=== PATIENT | male | born 1945 | race Caucasian/White ===

== ENCOUNTER 2017-12-11 07:16 | Day surgery (SDC) | payer MEDICARE, BC ==
--- NOTE | 2017-12-08 20:38 | HP ---
CC: Jorge Alberto Lopes MD; Woody Antunez MD * ADMISSION HISTORY AND PHYSICAL: DATE OF ADMISSION/SURGERY: 12/11/17 ATTENDING SURGEON: Asif Sierra MD * (WASHINGTON Cooper, dictating). CHIEF COMPLAINT: Right inguinal hernia. HISTORY OF PRESENT ILLNESS: This is a 71-year-old male who over the past 2 to 3 weeks had noted swelling in the right scrotum. He was initially evaluated by Dr. Antunez. An ultrasound was obtained on 11/27/17, showing a small cystic lesion of the right testicle, measuring 0.7 x 0.4 x 0.5 cm. In addition, there was a lesion measuring 5.6 x 3.2 x 4.9 cm that was isoechoic with fat and appeared to be originating from the inguinal area, felt to be consistent with an inguinal hernia or a lipoma of the cord. The left side testis was normal. The patient denies any prior trauma or straining injury. The swelling has been completely asymptomatic. He has not had any change in GI or function. He was seen in the office by Dr. Sierra on 12/02/17, at which time exam confirmed the presence of a moderate sized right inguinal hernia felt to be indirect in origin. No hernia was appreciated on the left. Dr. Sierra discussed with him the indications for surgery, the risks, benefits, and alternatives and the patient would like to proceed as scheduled with open repair of right inguinal hernia with mesh. PAST MEDICAL HISTORY: Osteoarthritis, depression, insomnia, hyperlipidemia. PAST SURGICAL HISTORY: Previous surgeries include left hip arthroplasty, right hip replacement, right knee replacement, and surgery for spinal stenosis of the cervical and lumbar spine with internal fixation. No reported surgical or anesthesia complications. CURRENT MEDICATIONS: 1. Cymbalta 90 mg once daily. 2. Pravastatin 40 mg once daily. 3. Trazodone 150 mg q.h.s. ALLERGIES: MORPHINE (itching). FAMILY HISTORY: Noncontributory in terms of anesthesia problems, bleeding or clotting disorders. SOCIAL HISTORY: The patient is . He is retired as an client support administrator for physical education. He denies use of tobacco, alcohol, or recreational drugs. REVIEW OF SYSTEMS: General: No recent constitutional symptoms or acute illnesses. His weight has been stable. Cardiovascular: No chest pain, palpitations, history of heart murmur, or hypertension. Respiratory: No chronic cough or shortness of breath. GI: No problems reported. Colonoscopy done approximately 1 year ago with removal of a single benign polyp. Recommended followup in 6 years. : He is followed by Dr. Antunez for some mild BPH. He states that his PSA is normal and that he has nocturia up to 1 time per night. Endocrine: No diabetes or thyroid dysfunction. Musculoskeletal: The patient notes the development of a left ulnar mass in the past couple of weeks which was not precipitated by trauma or injury and has been asymptomatic and otherwise stable in size. PHYSICAL EXAMINATION GENERAL: Well-nourished, mildly obese male, in no acute distress. VITAL SIGNS: Height 69 inches, weight 200 pounds. Blood pressure 122/80, pulse 76, respirations 16. SKIN: Warm and dry. No suspicious rashes or lesions noted. See also below for extremities. HEENT: Pupils equal, round, and reactive. EOMs intact. No conjunctival pallor. Oropharynx; teeth in good repair. No intraoral lesions. NECK: No lymphadenopathy, thyromegaly, or masses. LUNGS: Clear to auscultation. No wheezes. HEART: Regular rate and rhythm. No murmur appreciated. ABDOMEN: Soft, nontender to palpation. No palpable masses or organomegaly with the exception of right groin. The patient was reexamined today and a small lesion was noted on the right testis as confirmation of the ultrasound finding. It was difficult to reproduce the hernia on today's exam. No hernia was appreciated on the left; the testis on that side is slightly smaller versus the right. GENITALIA: Not otherwise examined. RECTAL: Not done. BACK: No spinous process or CVA tenderness. EXTREMITIES: No edema. There is a soft tissue mass along the ulna approximately 2 to 2.5 cm distal to the olecranon measuring 2 x 2.5 cm and without erythema or tenderness (the patient was reassured and will follow up on this with his PCP and/or subassemblies wirer, but it did not appear that any additional intervention was required). NEUROLOGICAL: Grossly intact. IMPRESSION: Right inguinal hernia. PLAN: Open repair of right inguinal hernia with mesh. WASHINGTON COOPER [id number]/[facility] #: [id number] GARRY
[~2017-12-11 07:16] MED LIST: Buffered Lidocaine 0.9% SYRIN* 5 ML/SYR SYRINGE INTRADERM ONE
[2017-12-11] MEDS ORDERED: ceFAZolin 2 GM PREMIX (*) 2 GM/50 ML BAG IVPB ONE (07:31)
[2017-12-11] MEDS ORDERED: Buffered Lidocaine 0.9% SYRIN* 5 ML/SYR SYRINGE ONE (07:31)
[2017-12-11] MEDS ORDERED: fentaNYL* 50 MCG/ML 2 ML VIAL (100 MCG VIAL) ONE (08:12)
[2017-12-11] MEDS ORDERED: Midazolam* 1 MG/ML 2 ML VIAL (2 MG) ONE (08:12)
[2017-12-11] MEDS ORDERED: Lidocaine 1% MPF wEPI 200,000* 30 ML SDV ONE (08:35)
[2017-12-11] MEDS ORDERED: Bupivacaine 0.5% SDV PF* 10-30ML VIAL ONE (08:36)
[2017-12-11] MEDS ORDERED: Propofol* 10 MG/ML 20 ML BTL IV PUSH ONE (08:51)
[2017-12-11] MEDS ORDERED: Naloxone* 0.4 MG/ML 1 ML VIAL IV PRN (09:05)
[2017-12-11] MEDS ORDERED: Acetaminophen TAB* 325 MG PO PRN (09:26)
--- NOTE | 2017-12-11 09:26 | OP ---
Operative Report - Blank - Operative Report Date of Operation: 12/11/17 Note: Preop Dx: Right Inguinal Hernia Postop Dx: same, indirect Procedure: open repair RIH w/ mesh Anesthesia: local MAC Surgeon: Rigo Asst: WASHINGTON Sim Fluids: 400 ml RL EBL: 20 ml Drains: none Specimen: none Findings: dictated
[2017-12-11] MEDS ORDERED: HYDROcodone/ACETAMIN 5-325 MG* 1 TAB PO PRN (09:27)
[2017-12-11] MEDS ORDERED: Ibuprofen TAB* 600 MG PO ONE (09:30)
[2017-12-11] MEDS ORDERED: Ibuprofen TAB* 600 MG ONE (09:53)
[2017-12-11 10:03] VITALS: BP 112/84
--- NOTE | 2017-12-11 16:30 | OP ---
CC: Dr. Antunez; Dr. Lopes * DATE OF OPERATION: 12/11/17 - [facility] DATE OF : 43 SURGEON: Asif Sierra MD VESSEL CREW MEMBER: WASHINGTON Cooper ANESTHESIOLOGIST: Don Lancaster MD ANESTHESIA: LMAC anesthesia. PRE-OP DIAGNOSIS: Right inguinal hernia. POST-OP DIAGNOSIS: Right inguinal hernia. OPERATIVE PROCEDURE: Open repair, right inguinal hernia with mesh. DESCRIPTION OF PROCEDURE: The patient was supine on the operating room table. After adequate intravenous sedation, compression stockings, Francis Hugger warmer, and intravenous antibiotics, the right groin was prepped with antiseptic and draped in a sterile fashion. Local infiltrative anesthesia was administered and approximately 3-inch incision was created and carried down through the external oblique, which was opened in the direction of its fibers. Cord structures were encircled with a Smith drain and tented upward. It was a fairly large indirect space hernia. Cremasterics were opened and the hernia sac was freed up and reduced and a cone mesh plug was placed into the internal ring, sutured there with 2-0 Vicryl. Second piece of mesh was placed over the inguinal floor, sutured at the tubercle, the tails were split, brought around the cord structures and tacked down laterally. External oblique was closed over top with 2-0 Vicryl, Maninder's with 3-0 Vicryl, and skin with 4-0 Prolene, followed by a sterile dressing. He tolerated the procedure well, was brought to Recovery in good condition. No complications. No drains. No pathologic specimens. Sponge and instrument counts correct. Estimated blood loss was less than 20 mL. [id number]/[facility] #: [id number] MTDD
== END 2017-12-11 10:28 | disposition home or self-care (01) ==
LOC: OR 07:16
PROVIDERS: ATTEND Surgery
DX: K40.90 Unilateral inguinal hernia, without obstruction or gangrene, not specified as recurrent (principal); M19.90 Unspecified osteoarthritis, unspecified site; E78.5 Hyperlipidemia, unspecified; F32.9 Major depressive disorder, single episode, unspecified; G47.00 Insomnia, unspecified
CPT/HCPCS: A9270-GY; C1781; J0690; J2001; J2250; J2704; J3010

== ENCOUNTER → 2019-02-02 15:41 | Emergency (ER) | payer MEDICARE, BC | END | disposition left against medical advice (07) | LOC: ED 15:41 | DX: M25.539 Pain in unspecified wrist (principal); Z53.21 Procedure and treatment not carried out due to patient leaving prior to being seen by health care provider ==

== ENCOUNTER 2020-01-13 11:14 | Emergency (ER) | payer MEDICARE, OTHER, BC ==
[2020-01-13 13:44] VITALS: BP 125/80
--- NOTE | 2020-01-13 14:11 | UC ---
Back Pain HPI - HPI Summary HPI Summary: 74 mL presenting with right shoulder and upper back pain 2-3 weeks. Patient states that the pain began to go away but then yesterday the day before she woke up with worse pain. Describes as a sharp pain that is constant and unable to be relieved by any position change. Denies radiating pain. Denies decreased range of motion arm. Does note decreased range of motion when turning his head to the right but states that that could be because he has a plate in his neck from prior surgery. Denies any known trauma or injury to the back. States that he took 1 ibuprofen last night without relief. PMHx significant for osteoarthritis and multiple joint replacements. - History of Current Complaint Chief Complaint: UCBackPain Stated Complaint: SHOLDER, BACK PAIN Pain Intensity: 9 Pain Scale Used: 0-10 Numeric - Allergies/Home Medications Allergies/Adverse Reactions: Allergies Allergy/AdvReac Type Severity Reaction Status Date / Time morphine Allergy Itching Verified 01/13/20 11:25 Home Medications: Home Medications DULoxetine DR CAP* [Cymbalta CAP*] 90 mg PO QAM 08/04/13 [History Confirmed ] Ibuprofen 600 mg PO QID PRN 08/04/13 [History Confirmed 01/13/20] Pravastatin Sodium [Pravachol] 40 mg PO QAM 02/14/15 [History Confirmed 01/13/20 ] traZODone TAB* [Desyrel TAB*] 150 mg PO BEDTIME 11/07/16 [History Confirmed ] predniSONE 10 mg TAB [Deltasone 10 MG TAB*] 30 mg PO DAILY 3 Days #9 tab [Rx] PMH/Surg Hx/FS Hx/Imm Hx - Surgical History Surgical History: Yes Surgery Procedure, Year, and Place: 1991 ARTHROSCOPIC RIGHT KNEE, [facility] [place]. 1991 TOTAL HIP LEFT HIP, [facility] [place]. 2002 NECK SURGERY, (DISCECTOMY C3 [place] 2005 LOWER BACK SURGERY,-REMOVED BONE SPURS & SPINAL STENOSIS [place]. 2012 TOTAL RIGHT KNEE SURGERY, [facility] [place]. 2014 TOTAL RIGHT HIP REPLACEMENT. 2014- RE-REPAIRED TOTAL Lt HIP - Social History Alcohol Use: None Substance Use Type: None Smoking Status (MU): Never Smoked Tobacco - Immunization History Most Recent Influenza Vaccination: NEVER Most Recent Tetanus Shot: with in last 5 years Most Recent Pneumonia Vaccination: 2010 Review of Systems All Other Systems Reviewed And Are Negative: Yes Constitutional: Positive: Negative Respiratory: Positive: Negative Cardiovascular: Positive: Negative Gastrointestinal: Positive: Negative Musculoskeletal: Positive: Arthralgia - right upper back/scapula pain. Negative : Decreased ROM, Edema Neurological/Mental Status: Positive: Negative. Negative: Paresthesia, Numbness Physical Exam - Summary Physical Exam Summary: Vital Signs Reviewed: Yes A+Ox3, no distress Eyes: Conjunctiva Clear ENT: Hearing grossly normal neck: supple Respiratory: Positive: No respiratory distress, No accessory muscle use Cardiovascular: skin color reflect adequate perfusion Musculoskeletal Exam: ROGERS x 4 without difficulty, +TTP of the medial aspect of right scapula and mid thoracic spine. No edema, no erythema or ecchymosis, right arm range of motion intact and equal to left. No neck tenderness. Sensation grossly intact. Neurological: Positive: Alert, ambulatory without difficulty Psychological: Positive: Normal Response To Family Skin: Positive: no rash, no ecchymosis Vital Signs: Initial Vital Signs Temp 97.0 F 01/13/20 11:21 Pulse 89 01/13/20 11:21 Resp 18 01/13/20 11:21 BP 114/75 01/13/20 11:21 Pulse Ox 99 01/13/20 11:21 Diagnostics - Radiology thoracic Radiology Interpretation Completed By: Radiologist Summary of Radiographic Findings: IMPRESSION: MILD DEGENERATIVE DISC DISEASE. Back Pain Course/Dx - Course Course Of Treatment: Discussed the generalized disc disease, etc. the patient. Educated on likely muscular etiology of pain and instructed to continue with rest, heat, and ibuprofen. I prescribed short course of prednisone and instructed to follow-up with orthopedics and sports medicine for further evaluation and treatment of neck pain. Patient voiced understanding and agreed with the treatment plan. - Differential Dx/Diagnosis Provider Diagnosis: Upper back pain on right side, Degenerative disc disease Discharge ED - Sign-Out/Discharge Documenting (check all that apply): Patient Departure All imaging exams completed and their final reports reviewed: Yes - Discharge Plan Condition: Stable Disposition: HOME Prescriptions: predniSONE 10 mg TAB [Deltasone 10 MG TAB*] 30 mg PO DAILY 3 Days #9 tab Patient Education Materials: Muscle Spasm (ED), Degenerative Disc Disease (ED) Referrals: [facility] [place] [facility] [Outside] - 1 Week Jorge Alberto Lopes MD [Primary Care Provider] - Additional Instructions: As discussed, your xrays revealed degenerative disc disease. Take prednisone as prescribed. Rest, heat, and take ibuprofen as directed to help alleviate pain symptoms. Refrain from strenuous physical activity until pain has fully resolved. Follow up with the orthopedics and sports medicine referral listed below as soon as possible for further evaluation and treatment of back pain. - Billing Disposition and Condition Condition: STABLE Disposition: Home
== END 2020-01-13 14:30 | disposition home or self-care (01) ==
LOC: UCEAST 11:14
DX: M54.89 Other dorsalgia (principal); M51.34 Other intervertebral disc degeneration, thoracic region; Z88.5 Allergy status to narcotic agent
CPT/HCPCS: 72070; 99212; G0463